=== PATIENT | female | born 1980 | race Hispanic/Latino ===

== ENCOUNTER 2020-11-15 13:08 | Emergency (ER) | payer OTHER, SELFPAY ==
[2020-11-15] MEDS ORDERED: Ondansetron ODT 4 MG TAB ONE (13:38)
== END 2020-11-15 15:18 | disposition home or self-care (01) ==
LOC: NAV ERS 13:08
DX: R10.9 Unspecified abdominal pain (principal); R19.7 Diarrhea, unspecified; R11.2 Nausea with vomiting, unspecified
CPT/HCPCS: 96372; 99283; J0500; Q0162